=== PATIENT | female | born 1950 | race Asian ===

== ENCOUNTER 2018-08-29 07:54 | Day surgery (SDC) | payer OTHER ==
[~2018-08-29] VITALS: Ht 149.9 cm; Wt 104.8 kg
[2018-08-29] VITALS (13 sets, daily range): BP systolic 121–159; BP diastolic 52–99; PULSE 55–104; RESP 16–25; Ht 149.9 cm; Wt 104.8 kg
[~2018-08-29 07:54] MED LIST: ADV25050 INH; AMLO1TAB51; BRIN8DRO OP; ESOM40SU PO; KETO5DRO79 LEFT EYE; LOSA100T15 PO; METF850T13 PO; MONT10TA21 PO; PIOG30TA12 PO; PRED1DRO LEFT EYE; ROCURONIUM 50 MG INJ ONE; SOD CHLORIDE 0.9% 1,000 ML IV SCH; VANCOMYCIN HCL 2 GM in SOD CHLORIDE 0.9% 500 ML IVPB ONE
--- NOTE | 2018-08-29 08:18 | PREAC ---
Date/Time of Note Date/Time of Note DATE: 08/29/18 TIME: 08:16 Anesthesia Eval and Record Evaluation Time Pre-Procedure Interview DATE: 08/29/18 TIME: 08:16 Age 67 Sex female NPO: 8 hrs Preoperative diagnosis LEFT BREAST MASS Planned procedure LEFT NEEDLE LOCALIZED EXCISIONAL BIOPSY Past Medical History Past Medical History: Includes Cardio: HTN, Dyslipidemia Endo: Diabetes Pulm: Asthma Renal: Other (DIABETIC NEPPROPATHY; incontinence ) GI: GERD, Morbid obesity Surgery & Anesthesia Issues No known issue Meds Anticoagulation: No Beta Jony within 24 hr: No Reason Beta Jony not given: Pt. not on B-Jony Reported Medications Glipizide* (Glipizide*) 5 Mg Tablet, 1 TAB ORAL QAM 08/29/18 Atorvastatin* (Atorvastatin*) 40 Mg Tablet, 1 TAB ORAL QAM 08/29/18 Pantoprazole* (Pantoprazole*) 40 Mg Tablet.dr, 1 TAB ORAL DAILY 08/29/18 Montelukast Sodium* (Montelukast Sodium*) 10 Mg Tablet, 1 TAB ORAL QAM 08/29/18 Losartan Potassium* (Losartan Potassium*) 50 Mg Tablet, 1 TAB ORAL QAM 08/29/18 Montelukast Sodium* (Singulair*) 10 Mg Tablet, 10 MG PO DAILY, TAB 10/09/13 Discontinued Reported Medications Salmeterol Xinaf/Fluticasone* (Advair*) 1 Inh Inha, 1 PUFF INH BID, INH 10/09/13 Brinzolamide-Brimonidine (Simbrinza 1%-0.2% Oph) 8 Ml Drops.susp, 8 ML OP BID 1 GTT TO BOTH EYES TWICE A DAY 10/09/13 Prednisolone Acetate (Pred Forte) 5 Ml Drops.susp, 1 DROP LEFT EYE QID, EA 10/09/13 Ketorolac Tromethamine Oph (Ketorolac Tromethamine Oph) 5 Ml Drops, 1 DROP LEFT EYE QID, EA 10/09/13 Metformin Hcl* (Metformin Hcl*) 850 Mg Tablet, 850 MG PO BID, TAB 10/09/13 Losartan Potassium* (Losartan Potassium*) 100 Mg Tablet, 100 MG PO DAILY, TAB 10/09/13 Pioglitazone Hcl* (Actos*) 30 Mg Tablet, 30 MG PO DAILY, TAB 10/09/13 Esomeprazole Mag Trihydrate (Nexium Packet) 40 Mg/Packet Suspdr.pkt, 40 MG PO DAILY 04/30/13 Amlodipine-Atorvastatin (Caduet) 1 Tab Tablet 11/20/09 Current Medications Sodium Chloride 1,000 ml @ 75 mls/hr [id number] IV ; Start 08/29/18 at 06:00; Stop 08/29/18 at 18:00 Vancomycin HCl 2 gm/Sodium Chloride 500 ml @ 125 mls/hr PRE-OP ONCE IVPB ; Start 08/29/18 at 06:00; Stop 08/29/18 at 09:59 Meds reviewed: Yes Allergies Coded Allergies: Penicillins (Verified Allergy, Severe, rash, SOB, 10/09/13) Sulfa (Sulfonamide Antibiotics) (Verified Allergy, Severe, SWOLLEN TONGUE, 10/09/13) Allergies Reviewed: Yes Labs/Studies Labs Reviewed: Reviewed by anesthesiologist test: N/A Studies: ECG, CXR Pre-procedure Exam Airway: Adequate mouth opening, Adequate thyromental dist Mallampati: Mallampati II Teeth: Normal Lung: Normal Heart: Normal ASA Physical Status ASA physical status: 3 Emergency: None Planned Anesthetic General/MAC: ETT Planned Pain Management Parenteral pain med, Local by surgeon Pre-operative Attestations Prior to commencing anesthesia and surgery, the patient was re-evaluated, there was verification of: *The patient's identity *The results of appropriate recent lab work and preoperative vital signs *The above evaluation not changing prior to induction *Anesthetic plan, risk benefits, alternative and complications discussed with patient/family; questions answered; patient/family understands, accepts and wishes to proceed. CHANEL BENEDICT August 29, 2018 08:18
[2018-08-29] MEDS ORDERED: PANT40TA4 ORAL (11:21)
[2018-08-29] MEDS ORDERED: GLIP5TAB13 ORAL (11:21)
[2018-08-29] MEDS ORDERED: ATOR40TA68 ORAL (11:21)
[2018-08-29] MEDS ORDERED: MONT10TA24 ORAL (11:21)
[2018-08-29] MEDS ORDERED: LOSA50TA14 ORAL (11:21)
[2018-08-29] MEDS ORDERED: hydrALAzine 20 MG INJ IV PRN (12:00)
[2018-08-29] MEDS ORDERED: OXYCODONE/ACETAMINOPHEN (5/325) TAB PO PRN ×2 (12:00)
[2018-08-29] MEDS ORDERED: ALBUTEROL 0.083% (NEB) 2.5 MG/3 ML AMP HHN PRN (12:00)
[2018-08-29] MEDS ORDERED: LABETALOL HCL 20MG INJ IV PRN (12:00)
[2018-08-29] MEDS ORDERED: HYDROmorphONE 1 MG/5 ML IV SYRINGE IV PRN ×3 (12:00)
[2018-08-29] MEDS ORDERED: ONDANSETRON 4 MG INJ IV PRN (12:00)
[2018-08-29] MEDS ORDERED: PROPOFOL 20 ML ONE (12:05)
[2018-08-29] MEDS ORDERED: SUCCINYLCHOLINE CHLORIDE 100 MG/5 ML SYG IV ONE (12:05)
[2018-08-29] MEDS ORDERED: LIDOCAINE 2% (SDV) 5 ML INJ ONE (12:05)
[2018-08-29] MEDS ORDERED: CLINDAMYCIN 900 MG/D5W (PMX) 50 ML IVPB ONE (12:05)
[2018-08-29] MEDS ORDERED: METOCLOPRAMIDE 10 MG INJ ONE (12:06)
[2018-08-29] MEDS ORDERED: FENTAnyl 50 MCG/ML VIAL ONE (12:06)
[2018-08-29] MEDS ORDERED: ONDANSETRON 4 MG INJ ONE (12:06)
[2018-08-29] MEDS ORDERED: FAMOTIDINE 20 MG INJ ONE (12:06)
[2018-08-29] MEDS ORDERED: DEXAMETHASONE 4 MG/ML 5 ML INJ ONE (14:06)
[2018-08-29] MEDS ORDERED: PHENYLephrine (100 MCG/ML) 10ML SYG ONE (14:19)
[2018-08-29] MEDS ORDERED: SUGAMMADEX SODIUM 200 MG/2 ML VIAL IV ONE (14:28)
--- NOTE | 2018-08-29 14:49 | SIPON ---
Date/Time of Note Date/Time of Note DATE: 08/29/18 TIME: 14:48 Operative Report Preoperative Diagnosis Papillary lesion left breast Postoperative Diagnosis Same Operation/Procedure Performed Left needle directed partial mastectomy Surgeon see signature line physical laboratory assistant None Anesthesia: general Estimated blood loss: 0 - 10 ml's Transfusion Required none Specimen Left breast specimen Grafts/Implants none Complications none KRYSTIAN KAPADIA MD August 29, 2018 14:49
[2018-08-29] MEDS ORDERED: HYDROCODONE/APAP (7.5/325) TAB PO PRN (15:00)
--- NOTE | 2018-08-29 15:03 | PAC ---
Date/Time of Note Date/Time of Note DATE: 08/29/18 TIME: 15:02 Post-Anesthesia Notes Post-Anesthesia Note Last documented vital signs POST HR 103 BP 138/62 SPo2 100% RR 16 Temp 97.4 Vital Signs Date Temp Pulse Resp B/P (MAP) Pulse Ox O2 O2 Flow FiO2 Time Delivery Rate 08/29/18 97.0 93 16 138/67 96 Room Air 11:50 (90) Activity: WNL Respiratory function: WNL Cardiovascular function: WNL Mental status: Baseline Pain reasonably controlled: Yes Hydration appropriate: Yes Nausea/Vomiting absent: Yes CHANEL BENEDICT August 29, 2018 15:03
--- NOTE | 2018-08-29 18:13 | OPR ---
DATE OF OPERATION: 08/29/2018 PREOPERATIVE DIAGNOSIS: Papillary lesion, left breast. POSTOPERATIVE DIAGNOSIS: Papillary lesion, left breast. PROCEDURE: Left needle-directed partial mastectomy. ANESTHESIA: General. ANESTHESIOLOGIST: Nurse ditch rider, Jaydon Donato. SURGEON: Ronen Maravilla MD. MARINE ELECTRONICS TECHNICIAN: None. INDICATIONS FOR PROCEDURE: The patient is a 67-year-old female, who underwent surveillance mammograp hy and subsequent ultrasonography, was found to have suspicious lesion in her left breast. Core biop sy revealed a papillary lesion. A complete excision was recommended. She consented and was schedule d for surgery. DESCRIPTION OF PROCEDURE: On the morning of surgery, the patient presented to [facility] where she underwent localization of the lesion performed by attending radiologist, Dr. Babatunde Mancilla. Subsequently, she was brought to the operating theater, placed under general a nesthesia. The left breast was prepped and draped in usual sterile fashion. A incision was ma de from the nipple-areolar border at the 5 o'clock to the inframammary fold. This was in the locatio n of the previously placed localization wire. Subcutaneous tissue was dissected with cautery. Skin edges were then elevated with skin hooks and wide circumferential dissection of the tissue associated with the wire then took place, taking great care to ensure adequate margin. Specimen was then eleva naveen, transected, oriented, sent for radiographic confirmation of capture. Capture was confirmed. Th e specimen was then sent for permanent pathologic analysis. The wound was irrigated. Minimal bleedi ng was controlled with cautery. The skin was then reapproximated with a 4-0 Vicryl suture in subcuti cular fashion and Dermabond was applied. The patient tolerated the procedure well. The estimated bl ood loss was 10 mL. There were no complications and the patient was transported in stable condition to recovery room where circumferential compression dressing was applied. Dictated By: RONEN MARAVILLA MD TL/CONNIE Conf#: [id number] DID#: [id number]
== END 2018-08-29 17:10 | disposition home or self-care (01) ==
LOC: SDS 07:54
PROVIDERS: ATTEND Surgery Surgical Oncology
DX: D24.2 Benign neoplasm of left breast (principal); N60.32 Fibrosclerosis of left breast; E11.9 Type 2 diabetes mellitus without complications; E78.5 Hyperlipidemia, unspecified; J45.909 Unspecified asthma, uncomplicated
CPT/HCPCS: 19301; 82962; 88307; J1100; J1170; J2370; J2405; J2765; J3010; J3370; J7040